=== PATIENT | male | born 1945 | race Caucasian/White ===

== ENCOUNTER 2021-07-02 08:26 | Outpatient (REF) | payer OTHER, SELFPAY ==
[2021-07-02 11:56] LABS: Alanine Aminotransferase 19 U/L (0-40); Albumin Level 4.4 g/dL (3.5-5.0); Alkaline Phosphatase 67 U/L (39-117); Anion Gap 14 (12-20); Aspartate Amino Transferase 19 U/L (5-37); Bilirubin Total 0.8 mg/dL (0.0-1.0); Blood Urea Nitrogen 15 mg/dL (9-16); Calcium 9.5 mg/dL (8.4-10.2); Carbon Dioxide 25 mmol/L (22-29); Chloride 107 mmol/L (96-108); Cholesterol 182 mg/dL; Estimated Glomerular Filt Rate > 60; Glucose Fasting 89 mg/dL (60-99); HDL Cholesterol 62 mg/dL; LDL Cholesterol Calculated 95 mg/dl; Potassium 4.1 mmol/L (3.3-5.1); Sodium 142 mmol/L (135-145); Total Protein 6.6 g/dL (6.5-8.0); Triglycerides 125 mg/dL
[2021-07-02 12:12] LABS: HBc Num1 0.21 S/CO (0.00-0.79); Hepatitis B Core Antibody Nonreactive (Nonreactive); Hepatitis B Surface Antigen Negative (Negative); ~HepC Num1 0.12 S/CO (0.00-0.79); ~Hepatitis C Antibody Nonreactive (Nonreactive)
[2021-07-02 12:21] LABS: TSH reflex Free T4 2.26 uIU/mL (0.32-4.0)
[2021-07-02 12:28] LABS: HBS Num1 0.51 mIU/mL (0-7.99); HIV AB/AG Nonreactive (Nonreactive); HIV Num 1 0.08 S/CO (0.00-0.99); ~Hepatitis B Surface Antibody NONREACTIVE (Nonreactive)
[2021-07-03 08:00] LABS: Syphilis Screen Nonreactive (Nonreactive)
== END 2021-07-02 08:27 | disposition home or self-care (01) ==
LOC: HO.WFDLDS 08:26
PROVIDERS: Visit Provider Family Medicine
DX: Z00.00 Encounter for general adult medical examination without abnormal findings (principal); Z11.3 Encounter for screening for infections with a predominantly sexual mode of transmission
CPT/HCPCS: 36415; 80053; 80061; 84443; 86704; 86706; 86780; 86803; 87340; 87389

== ENCOUNTER → 2021-08-08 10:30 | Outpatient (BNVA) | payer OTHER, SELFPAY | PROVIDERS: PCP Family Medicine; Referring Provider Family Medicine; Visit Provider Internal Medicine Cardiovascular Disease | DX: I48.91 Unspecified atrial fibrillation (principal); I10 Essential (primary) hypertension | CPT/HCPCS: 93005 ==

== ENCOUNTER → 2021-11-21 10:15 | Outpatient (BNVA) | payer OTHER, SELFPAY | PROVIDERS: PCP Family Medicine; Referring Provider Family Medicine; Visit Provider Internal Medicine Cardiovascular Disease ==

== ENCOUNTER → 2022-03-24 13:02 | Outpatient (REF) | payer OTHER, SELFPAY ==
--- NOTE | 2022-03-24 13:05 | CA_ITS ---
Transthoracic Echocardiogram Patient (Last, First, Middle): Savage Urbina, Gender: Male Date of : 1945 Age: 76 Procedure Date: 03/24/2022 Procedure Type: Transthoracic Echocardiogram Location: OP Height: 190.5 cm Weight: 88.45 kg BSA: 2.17 m2 Heart Rate: bpm BP: 138 / 88 mmHg Senior Microstrategy Developer: [email or web address] Referring MD: Murtaza Hill MD Professional Soccer Player: Toi Marc MD Symptoms: I48.91 - Unspecified atrial fibrillation Study Quality: Adequate ECG Rhythm: Atrial Fibrillation Conclusions: - 1. Normal LV systolic function 2. Mild biatrial enlargement 3. Trivial aortic regurgitation mild mitral regurgitation 4. Mildly elevated right ventricular systolic pressure 5. No pericardial effusion Findings Left Ventricle Normal left ventricular size, thickness, and systolic function. The visually estimated ejection fraction is between 60-65%. Diastolic function is indeterminate on the basis of available data. E/E prime ratio is between 8 and 15 consistent with indeterminate filling pressures. Right Ventricle Normal right ventricular cavity size and systolic function. Atria The left atrium is mildly dilated. There is no evidence of interatrial shunt. The right atrium is mildly dilated. Aortic Valve The aortic valve structure and function is likely normal. There is no aortic valve stenosis. There is trace (trivial) aortic valve regurgitation. Mitral Valve There is mild anterior and posterior mitral leaflet thickening. There is mild mitral valve regurgitation. There is no mitral valve stenosis. Pulmonic Valve The pulmonic valve is likely normal. There is trace to mild pulmonic valve regurgitation. Tricuspid Valve Normal tricuspid valve structure. There is mild tricuspid valve regurgitation. Normal right atrial pressure. Mild pulmonary hypertension is present. Great Vessels All visible segments of the aorta are normal in size. The pulmonary artery was not well visualized. Venous The inferior vena cava is normal in size and collapses greater than 50% with inspiration. Pericardium/Pleural There is no evidence of pericardial effusion. Prior Study Comparison No prior study available for comparison. Measurements 2D Linear Measurements IVSd: 1.09 0.6-0.9/0.6-1.0 cm LVIDd: 4.19 3.9-5.3/4.2-5.9 cm LVIDd Index: 1.93 2.4-3.2/2.2-3.1 cm/m2 LVIDs: 2.40 2.0-3.6 cm LVPWd: 1.07 0.7-1.1 cm LA Diam: 3.30 2.7-3.8/3.0-4.0 cm LAIDs Index: 1.52 1.5-2.3 cm/m2 LV Mass: 189.79 67-162/88-224 g LV Mass Index: 87.46 43-95/49-115 g/m2 LVOT Diam: 1.90 3.0+(-)1.3 cm 2D Systolic Function EF 4C: 65.70 >55% EF 2C: 59.30 >55% EF BiP: 62.80 >55% Mitral Valve MV Pk E: 1.32 MV Decel Time: 242.00 E'Lateral: 11.00 E'Medial: 7.51 E/E' Med: 17.60 E/E' Lat: 12.00 PHT: 71.00 MVA PHT: 3.10 Decel [place]: 5.46 Aortic Valve AoV Pk Corey: 1.13 AoV Mn Corey: 0.73 AoV VTI: 0.21 AoV Pk Grad: 5.00 Aov Mn Grad: 3.00 AZIZA Cont.VTI: 2.31 LVOT LVOT Pk Corey: 0.99 LVOT Mn Corey: 0.66 LVOT VTI: 0.17 LVOT Pk Grad: 4.00 LVOT Mn Grad: 2.00 LVOT Diam: 1.90 LVOT Area: 2.84 Diastolic Function MV Pk E: 1.32 E'Medial: 7.51 E/E' Med: 17.60 E' Laterial: 11.00 E/E' Lat: 12.00 Right Ventricle TAPSE (mm): 22.00 TVS' Corey: 10.90 Tricuspid Valve TR Pk Corey: 3.04 TR Pk Grad: 37.00 RA Press: 3.00 RVSP: 40.00 Great Vessels Aorta Sinus of Valsalva: 3.95 2.0-3.[address] [place]: 3.23 1.7-3.4 cm Ao Asc: 3.60 2.1-3.4 cm Updated in Other Vendor System with Status of Final Toi Marc MD electronically signed on 03/25/2022 2:32:50 PM with status of Final
== END ==
LOC: HO.CARD 13:02
PROVIDERS: PCP Family Medicine; Visit Provider Internal Medicine Cardiovascular Disease
DX: I48.91 Unspecified atrial fibrillation (principal)
CPT/HCPCS: 93306

== ENCOUNTER → 2022-04-02 13:38 | Outpatient (BNVA) | payer OTHER, SELFPAY | PROVIDERS: PCP Family Medicine; Referring Provider Family Medicine; Visit Provider Nurse Practitioner Family | DX: I48.91 Unspecified atrial fibrillation (principal); I10 Essential (primary) hypertension | CPT/HCPCS: 93005 ==

== ENCOUNTER → 2022-04-29 09:12 | Outpatient (REF) | payer MEDICARE, SELFPAY ==
--- NOTE | 2022-04-29 09:16 | HM_ITS ---
* Total monitoring time 2 days and 17 hours. * Underlying rhythm is atrial fibrillation. Average rate 80/Min. Range 44 to 189/Min. * About 6% the time, rate greater than 100/Min. * 4 pauses noted; longest 2.7 seconds at 10:57hrs. * Frequent PVCs; 2 morphologies; 9 couplets; overall burden 3.3%. * No patient events. * Overall, atrial fibrillation rate control is reasonable, but there is clearly evidence of occasional rapid rates. MTDD
== END ==
LOC: HO.CARD 09:12
PROVIDERS: PCP Family Medicine; Visit Provider Nurse Practitioner Family
DX: I48.91 Unspecified atrial fibrillation (principal)
CPT/HCPCS: 93242